=== PATIENT | male | born 1980 ===

== ENCOUNTER 2021-05-13 22:44 | Emergency (ER) | payer OTHER ==
[~2021-05-13] VITALS: Ht 170.2 cm; Wt 60.1 kg
--- NOTE | 2021-05-13 22:45 | NUR ---
BIB EMS FOR VISUAL HALLUCINATIONS. PT REPORTS SEEING "SPIDER EGGS AND SHIT" ON CLOTHING AND MASK. DENIES RECENT DRUG USE. OTHERWISE A&OX4; PT COOPERATIVE THROUGHOUT TRIAGE. DENIES SI/HI. BP/SPO2 MONITORING IN PLACE. URINAL PROVIDED. CALL LIGHT WITHIN REACH.
[2021-05-13 22:46] VITALS: BP 129/80
--- NOTE | 2021-05-13 23:21 | NUR ---
LAB IN TO DRAW. PT COOPERATIVE WITH CARE
[2021-05-13 23:33] LABS: BASOPHILS % (AUTO) 0 % (0-1); EOSINOPHILS % (AUTO) 0 % (1-7); LYMPHOCYTES % (AUTO) 9 % (22-44); MEAN CORPUSCULAR HEMOGLOBIN 31.7 pg (27.5-34.5); MEAN CORPUSCULAR HGB CONC 34.8 g/dL (33.2-36.2); MEAN PLATELET VOLUME 9.2 fL (7.4-10.4); MONOCYTES % (AUTO) 7 % (2-9); NEUTROPHILS % (AUTO) 84 % (42-75); PLATELET COUNT 205 x10^3/uL (130-400); RED BLOOD COUNT 4.23 x10^6/uL (4.38-5.82)
[2021-05-13 23:42] LABS: ALANINE AMINOTRANSFERASE 51 U/L (12-78); ALBUMIN 3.7 g/dL (3.4-5.0); ANION GAP 8 mmol/L (5-15); CALCIUM 8.7 mg/dL (8.5-10.1); CHLORIDE 106 mmol/L (98-107); CREATININE 0.91 mg/dL (0.7-1.3)
[2021-05-13 23:53] LABS: ALKALINE PHOSPHATASE 90 U/L (45-117); SALICYLATE LEVEL < 1.7 mg/dL (2.8-20.0); TOTAL PROTEIN 7.4 g/dL (6.4-8.2)
--- NOTE | 2021-05-14 00:26 | NUR ---
PT RESTING IN GURNEY W EYES CLOSED. EVEN/REGULAR RESPIRATIONS NOTED. REMOVED OWN MONITORING EQUIPMENT. URINAL AT BEDSIDE AND PT IS AWARE OF NEED FOR UDS
--- NOTE | 2021-05-14 00:36 | NUR ---
PT CONTINUES TO REST; EVEN/REGULAR RESPIRATIONS NOTED.
--- NOTE | 2021-05-14 02:02 | NUR ---
RN AT BEDSIDE TO ENCOURAGE PT TO PROVIDE URINE SAMPLE. PT REPORTS HE WILL TRY.
[2021-05-14 02:59] LABS: AMPHETAMINE SCREEN, URINE Positive (Negative); BARBITURATE SCREEN, URINE Negative (Negative); BENZODIAZEPINE SCREEN, URINE Negative (Negative); CANNABINOID SCREEN, URINE Negative (Negative); COCAINE SCREEN, URINE Negative (Negative); OPIATE SCREEN, URINE Negative (Negative)
[2021-05-14 03:01] LABS: METHADONE SCREEN, URINE Negative (Negative)
--- NOTE | 2021-05-14 04:39 | NUR ---
PATIENT LYING IN STRETCHER WITH EYES CLOSED. NAD. AWAITING TELEPSYCH. WILL CONTINUE TO MONITOR.
--- NOTE | 2021-05-14 06:20 | NUR ---
PATIENT WALKED OUT PRIOR TO GETTING DISCHARGE PAPERWORK.
== END 2021-05-14 06:22 ==
LOC: ED 22:49
DX: F19.159 Other psychoactive substance abuse with psychoactive substance-induced psychotic disorder, unspecified (principal); F15.10 Other stimulant abuse, uncomplicated; Z72.9 Problem related to lifestyle, unspecified
CPT/HCPCS: 36415; 80053; 80299; 80307; 80320; 80329; 84443; 85025; 99283; G0480